=== PATIENT | male | born 1995 | race Caucasian/White ===

== ENCOUNTER 2020-03-19 23:21 | Emergency (ER) | payer OTHER ==
--- NOTE | 2020-03-19 23:51 | RAD ---
EXAM: Two views chest PROVIDED CLINICAL HISTORY: Chest pain worse with inspiration. COMPARISON: None FINDINGS: Cardiac silhouette and pulmonary vasculature are within normal limits. The lungs are clear. The osse ous structures have a normal appearance. IMPRESSION: No acute cardiopulmonary process.
== END 2020-03-20 00:33 | disposition home or self-care (01) ==
LOC: ERS 23:21
DX: M94.0 Chondrocostal junction syndrome [Tietze] (principal); I10 Essential (primary) hypertension
CPT/HCPCS: 71046; 93005